=== PATIENT | male | born 1960 | race Caucasian/White ===

== ENCOUNTER 2021-04-05 17:13 | Emergency (ER) | payer OTHER ==
[~2021-04-05] VITALS: Ht 182.9 cm; Wt 90.9 kg
--- NOTE | 2021-04-05 17:22 | PHYS DOC ---
General Adult HPI: HPI: 60-year-old male past medical history of meth use, presents the ED from [facility], [place], brought in by EMS with complaints of painful genital rash x2 days stating he checked himself into rehab 10 days ago (which was his last meth use-reports IVDU). States before this he had been walking around in wet clothing for days. Also reports drinking lots of water at bedtime and having to get up and use restroom multiple times at night. Denies associated urethral discharge, dysuria, hematuria, incontinence, saddle anesthesia, flank pain, nausea, vomiting or fever. NKDA. Review of Systems: Review of Systems: Constitutional: Denies fever or chills. [] Eyes: Denies change in visual acuity. [] HENT: Denies nasal congestion or sore throat. [] Respiratory: Denies cough or shortness of breath. [] Cardiovascular: Denies chest pain or edema. [] GI: Denies abdominal pain, nausea, vomiting, bloody stools or diarrhea. [] : Denies hematuria or saddle anesthesia Musculoskeletal: Denies back pain or joint pain. [] Integument: Denies diaphoresis or desquamation Neurologic: Denies headache, focal weakness or sensory changes. [] Endocrine: Denies polyuria or polydipsia. [] Lymphatic: Denies swollen glands. [] Psychiatric: Denies depression or anxiety. [] Heart Score: C/O Chest Pain: No Risk Factors: Risk Factors: DM, Current or recent (<one month) smoker, HTN, HLP, family history of CAD, obesity. Risk Scores: Score 0 - 3: 2.5% MACE over next 6 weeks - Discharge Home Score 4 - 6: 20.3% MACE over next 6 weeks - Admit for Clinical Observation Score 7 - 10: 72.7% MACE over next 6 weeks - Early Invasive Strategies Physical Exam: PE: Constitutional: Unkept/disheveled appearance, no acute distress, non-toxic appearance, hypertensive HENT: Normocephalic, atraumatic, Eyes: EOMI, conjunctiva normal, no discharge. Neck: Normal range of motion, supple, Cardiovascular: S1/2 present, regular rhythm Lungs & Thorax: Speaking in full sentences, bilateral equal chest rise, no tachypnea or increased work of breathing Skin: Warm, dry, Extremities: No tenderness, no cyanosis, no lower extremity edema, tremulous at rest Neurologic: Alert and oriented X 3, no focal deficits noted. [] Psychologic: Affect normal, calm mood : Chaperoned by RN, circumcised, no scrotal edema/crepitus/erythema, no pharyngeal erythema, moist/malodorous satellite lesions in both inguinal folds, no testicular penile pain/fusion/trauma EKG: EKG: [] Radiology/Procedures: Radiology/Procedures: [] Course & Med Decision Making: Course & Med Decision Making Pertinent Labs and Imaging studies reviewed. (See chart for details) Concern for uncontrolled, asymptomatic hypertension in the setting of candidial infection of both inguinal folds.physical exam with no erythema of the genitals or perineum, no signs consistent with necrotizing fasciitis. Patient afebrile. Will prescribe nystatin and was given verbal instructions on wound care. Will discharge home with strict ED return precautions were given for chest pain, dyspnea, neurologic deficits, confusion or worsening rash. Encouraged urgent out patient follow-up with PMD for blood pressure recheck. Life-threatening processes were considered but are low suspicion at this time, given history, physical exam and ED workup. Pt was educated on all prescription medications and adverse effects. All patient's questions were answered and pt was stable at time of discharge. Life/limb-threatening differential includes but is not limited to, erythema multiforme, canales-adan syndrome, toxic epidermal necrolysis, staphylococcal scalded skin syndrome, necrotizing fasciitis/myositis/cellulitis, purpura fulminans, heparin or warfarin induced skin necrosis, angioedema, anaphylaxis drug rash, disseminated intravascular coagulation, disseminated gonococcal disease, vasculitis, septicemia, petechial disorder or coagulopathy, viral exanthem, Kawasaki's disease or life-threatening burn requiring burn center management or escharotomy. I have spoken with the patient and/or caregivers. I explained the patient's condition, diagnoses and treatment plan based on the information available to me at this time. I have answered the patient and/or caregiver's questions and addressed any concerns. The patient and/or caregivers have a good understanding of patient's diagnosis, condition and treatment plan as can be expected at this point. Vital signs have been stable. Patient's condition is stable and appropriate for discharge from the emergency department. Patient will pursue further outpatient evaluation with primary care physician or other designated or consulting physician as outlined in the discharge instructions. The patient and/or caregivers are agreeable to this plan of care and follow-up instructions have been explained in detail. The patient and/or caregivers have received these instructions in written form and have expressed an understanding of the discharge instructions. The patient and/or caregivers are aware that any significant change of condition or worsening of symptoms should prompt immediate return to this or the closest emergency department or call to 911. Yumiko Disclaimer: Yumiko Disclaimer: This electronic medical record was generated, in whole or in part, using a voice recognition dictation system. Departure Departure Impression: Primary Impression: Kimberlee infection of flexural skin Disposition: HOME / SELF CARE / HOMELESS Condition: STABLE Referrals: SERGIO SUNSHINE MD Follow-up with your primary care physician in 3-5 days for blood pressure check OR FOLLOW UP WITH FAMILY MEDICINE: [address], [address] [place] [address] Patient Instructions: Yeast Infection of the Skin, [id number] Additional Instructions: EMERGENCY DEPARTMENT GENERAL DISCHARGE INSTRUCTIONS Thank you for coming to [facility] Emergency Department (ED) today and trusting us with you care. We trust that you had a positive experience in our Emergency Department. If you wish to speak to the department management, you may call the Director at [phone]. YOUR FOLLOW UP INSTRUCTIONS ARE FOLLOWS: 1. Do you have a private Doctor? If you do not have a private doctor, please ask for a resource list of physicians or clinics that may be able to assist you with follow up care. 2. The Emergency Physicain has interpreted your x-rays. The X-Ray specialist will also review them. If there is a change in the findings, you will be notified in 48 hours when at all possible. 3. A lab test or culture has been done, your results will be reviewed and you will be notified if you need a change in treatment. ADDITIONAL INSTRUCTIONS AND INFORMATION: 1. Your care today has been supervised by a physician who is specially trained in emergency care. Many problems require more than one evaluation for a complete diagnosis and treatment. We recommend that you schedule your follow up appointment as recommended to ensure complete treatment of you illness or injury. If you are unable to obtain follow up care and continue to have a problem, or if your condition worsens, we recommend that you return to the ED. 2. We are not able to safely determine your condition over the phone nor are we able to give sound medical advice over the phone. For these safety reasons, if you call for medical advice we will ask you to come to the ED for further evaluation. 3. If you have any questions regarding these discharge instructions please call the ED at [phone]. SAFETY INFORMATION: In the interest of safety, wellness, and injury prevention; we encourage you to wear your sealbelt, if you smoke; quite smoking, and we encourage family to use a protective helmet for bicycling and other sporting events that present an increased risk for head injury. IF YOUR SYMPTOMS WORSEN OR NEW SYMPTOMS DEVELOP, OR YOU HAVE CONCERNS ABOUT YOUR CONDITION; OR IF YOUR CONDITION WORSENS WHILE YOU ARE WAITING FOR YOUR FOLLOW UP APPOINTMENT; EITHER CONTACT YOUR PRIMARY CARE DOCTOR, THE PHYSICIAN WHOSE NAME AND NUMBER YOU WERE GIVEN, OR RETURN TO THE ED IMMEDIATELY. Scripts Nystatin (NYSTATIN) 15 Gm Oint...g. 1 ARIANNA TP QID for 7 Days, #30 GM 7-10 days or until rash has resolved Prov: JACOB WOODS DO 04/05/21 AJCOB WOODS DO Apr 05, 2021 17:22
[2021-04-05] MEDS ORDERED: NYST15OI TP (17:59)
[2021-04-05 18:15] VITALS: BP 159/90
== END 2021-04-05 18:21 | disposition home or self-care (01) ==
LOC: ER 17:13
DX: B37.2 Candidiasis of skin and nail (principal)
CPT/HCPCS: 82962; 99283; 99285-25

== ENCOUNTER 2021-06-15 14:39 | Emergency (ER) | payer SELFPAY ==
[~2021-06-15] VITALS: Ht 180.3 cm; Wt 99.0 kg
[~2021-06-15 14:39] MED LIST: NYST15OI TP
--- NOTE | 2021-06-15 15:47 | ED.ADGEN ---
Past Medical History Additional Past Medical Histor: drug abuse Past Surgical History: Other Additional Past Surgical Histo: right arm fracture repair Smoking Status: Never Smoker Alcohol Use: None General Adult EDM: Chief Complaint: HYPERTENSION HPI: HPI: Patient is a 61-year-old male who arrives ambulatory to the emergency department seeking evaluation for visual changes. Patient reports for the past 3 days he has had blurred vision. Patient states he has a history of hypertension however he states he is homeless and has not been taking medication any kind for quite some time. Patient states previously when his blood pressure was elevated he would experience the same symptoms. Despite his visual changes, there are no other symptoms to report. Specifically the patient denies any neurological deficit, shortness of air or chest pain otherwise. He further denies any recent illness. He is awake, alert and nontoxic-appearing Review of Systems: Review of Systems: Constitutional: Denies fever or chills. [] Eyes: Reports blurred vision. Denies change in visual acuity. [] HENT: Reports visual change. Denies nasal congestion or sore throat. [] Respiratory: Denies cough or shortness of breath. [] Cardiovascular: Denies chest pain or edema. [] GI: Denies abdominal pain, nausea, vomiting, bloody stools or diarrhea. [] : Denies dysuria. [] Musculoskeletal: Denies back pain or joint pain. [] Integument: Denies rash. [] Neurologic: Reports blurred vision. Denies headache, focal weakness or sensory changes. [] Endocrine: Denies polyuria or polydipsia. [] Lymphatic: Denies swollen glands. [] Psychiatric: Denies depression or anxiety. [] Allergies: Allergies: Allergies Coded Allergies Type Severity Reaction Last Updated Verified No Known Drug Allergies 04/05/21 No Physical Exam: PE: Constitutional: Unkempt in his appearance. Well developed, well nourished, no acute distress, non-toxic appearance. [] HENT: Normocephalic, atraumatic, bilateral external ears normal, oropharynx moist, no oral exudates, nose normal. [] Eyes: PERRLA, EOMI, conjunctiva normal, no discharge. [] Neck: Normal range of motion, no tenderness, supple, no stridor. [] Cardiovascular:Heart rate regular rhythm, no murmur [] Lungs & Thorax: Bilateral breath sounds clear to auscultation [] Abdomen: Bowel sounds normal, soft, no tenderness, no masses, no pulsatile masses. [] Skin: Warm, dry, no erythema, no rash. [] Back: No tenderness, no CVA tenderness. [] Extremities: No tenderness, no cyanosis, no clubbing, ROM intact, no edema. [] Neurologic: Alert and oriented X 3, normal motor function, normal sensory function, no focal deficits noted. [] Psychologic: Affect normal, judgement normal, mood normal. [] Current Patient Data: Labs: Laboratory Tests Test 06/15/21 16:36 White Blood Count 6.0 x10^3/uL (4.0-11.0) Red Blood Count 5.06 x10^6/uL (4.30-5.70) Hemoglobin 16.7 g/dL (13.0-17.5) Hematocrit 47.8 % (39.0-53.0) Mean Corpuscular Volume 95 fL (79-100) Mean Corpuscular Hemoglobin 33 pg (25-35) Mean Corpuscular Hemoglobin Concent 35 g/dL (31-37) Red Cell Distribution Width 13.3 % (11.5-14.5) Platelet Count 179 x10^3/uL (140-400) Neutrophils (%) (Auto) 42 % (31-73) Lymphocytes (%) (Auto) 40 % (24-48) Monocytes (%) (Auto) 8 % (0-9) Eosinophils (%) (Auto) 9 % (0-3) H Basophils (%) (Auto) 1 % (0-3) Neutrophils # (Auto) 2.5 x10^3/uL (1.8-7.7) Lymphocytes # (Auto) 2.4 x10^3/uL (1.0-4.8) Monocytes # (Auto) 0.5 x10^3/uL (0.0-1.1) Eosinophils # (Auto) 0.5 x10^3/uL (0.0-0.7) Basophils # (Auto) 0.1 x10^3/uL (0.0-0.2) Sodium Level 142 mmol/L (136-145) Potassium Level 4.2 mmol/L (3.5-5.1) Chloride Level 107 mmol/L (98-107) Carbon Dioxide Level 27 mmol/L (21-32) Anion Gap 8 (6-14) Blood Urea Nitrogen 15 mg/dL (8-26) Creatinine 0.8 mg/dL (0.7-1.3) Estimated GFR (Cockcroft-Gault) 98.9 Glucose Level 91 mg/dL (70-99) Calcium Level 8.6 mg/dL (8.5-10.1) Troponin I High Sensitivity 9 ng/L (4-75) XC-Urf-V-Type Natriuretic Peptide 61 pg/mL (0-124) Laboratory Tests 06/15/21 16:36 Laboratory Tests 06/15/21 16:36 Vital Signs: Vital Signs Date Time Temp Pulse Resp B/P (MAP) Pulse Ox O2 Delivery O2 Flow Rate FiO2 06/15/21 17:00 62 163/103 (123) 97 Room Air 06/15/21 15:42 97.9 16 97.9 EKG: EKG: EKG was obtained at 1548 hrs. reveals bradycardia the ventricular rate of 59 bpm. There is left axis deviation with an incomplete right bundle branch block. There are no acute ST/T wave changes present to denote ischemia otherwise. [] Heart Score: C/O Chest Pain: No Risk Factors: Risk Factors: DM, Current or recent (<one month) smoker, HTN, HLP, family history of CAD, obesity. Risk Scores: Score 0 - 3: 2.5% MACE over next 6 weeks - Discharge Home Score 4 - 6: 20.3% MACE over next 6 weeks - Admit for Clinical Observation Score 7 - 10: 72.7% MACE over next 6 weeks - Early Invasive Strategies Radiology/Procedures: Radiology/Procedures: [][facility] [address] [place] [address] IMAGING REPORT Signed PATIENT: TAB KNOTT ACCOUNT: [id number] : 1960 LOCATION: ER AGE: 61 SEX: M EXAM STATUS: REG ER ORD. PHYSICIAN: JOHNATHAN ROY DO REASON: visual changes PROCEDURE: CT HEAD WO CONTRAST Exam Date: 06/15/2021 3:[address] HEAD/BRAIN WO Indication: Reason: visual changes / Spl. Instructions: / History: . TECHNIQUE: Head CT was performed without intravenous contrast. One or more of the following dose reduction techniques were utilized: *Automated exposure control (AEC) *Adjustment of mA and/or kV according to patient size *Use of iterative reconstruction technique *CT scan done according to ALARA, or ALARA/IMAGE GENTLY FINDINGS: The ventricles and sulci are normal for the patient's stated age. Patchy ill- defined low attenuation areas in the subcortical and periventricular white matter bilaterally are consistent with microvascular disease. There is no evidence of acute intracranial hemorrhage, extra-axial collection, mass effect, midline shift, or acute territorial infarct. No lesion of the skull base or the calvarium is seen. The visualized mastoid air cells and orbits are normal in appearance. There is partial opacification of the paranasal sinuses. IMPRESSION: No evidence for acute intracranial abnormality. Microvascular disease noted. Electronically signed by: Kranthi Washington MD (06/15/2021 4:10 PM) NIKOLASMELCHOR DICTATED and SIGNED BY: KRANTHI WASHINGTON MD DATE: 06/15/21 [id number] [facility] [address] [place] [address] IMAGING REPORT Signed PATIENT: TAB KNOTT ACCOUNT: [id number] : 1960 LOCATION: ER AGE: 61 SEX: M EXAM STATUS: REG ER ORD. PHYSICIAN: JOHNATHAN ROY DO REASON: elevated bp PROCEDURE: PORTABLE CHEST 1V Exam Date: 06/15/2021 3:51 PM XR CHEST 1V Indication: Reason: elevated bp / Spl. Instructions: / History: . FINDINGS/ IMPRESSION: The cardiac silhouette is enlarged without congestion. There is no focal consolidation, pleural effusion or pneumothorax. The visualized osseous structures are intact. Electronically signed by: Kranthi Washington MD (06/15/2021 4:12 PM) NIKOLASRODRIGUEZ DICTATED and SIGNED BY: KRANTHI WASHINGTON MD DATE: 06/15/21 [id number] 0 Course & Med Decision Making: Course & Med Decision Making Pertinent Labs and Imaging studies reviewed. (See chart for details) The patient remains awake, alert and in no acute distress. I spoke with the patient in great detail about the need to control his blood pressure regularly and have regular follow-up with the family physician. Patient states he is in the process of locating a residence and states he will try and find a family physician with whom to establish a relationship. He has been provided resources for follow-up that is sensitive to his financial situation. Should he develop any chest pain, shortness of air or medical concern otherwise, I advised that he return to the emergency department. The patient understands and has agreed to return as needed. At this time he is asymptomatic and neurologically intact. He is stable for discharge. [] Gomezon Disclaimer: Yumiko Disclaimer: This electronic medical record was generated, in whole or in part, using a voice recognition dictation system. Departure Departure Impression: Primary Impression: Uncontrolled hypertension Disposition: 01 HOME / SELF CARE / HOMELESS Condition: STABLE Referrals: NO PCP (PCP) Patient Instructions: Hypertension Scripts Amlodipine Besylate (NORVASC) 5 Mg Tablet 1 TAB PO DAILY, #30 TAB 5 Refills Prov: JOHNATHAN ROY DO 06/15/21 JOHNATHAN ROY DO Jun 15, 2021 15:47
--- NOTE | 2021-06-15 16:12 | RAD ---
Exam Date: 06/15/2021 3:[address] HEAD/BRAIN WO Indication: Reason: visual changes / Spl. Instructions: / History: . TECHNIQUE: Head CT was performed without intravenous contrast. One or more of the following dose re duction techniques were utilized: *Automated exposure control (AEC) *Adjustment of mA and/or kV according to patient size *Use of iterative reconstruction technique *CT scan done according to ALARA, or ALARA/IMAGE GENTLY FINDINGS: The ventricles and sulci are normal for the patient's stated age. Patchy ill-defined low attenuation areas in the subcortical and periventricular white matter bilaterally are consistent with microvascu lar disease. There is no evidence of acute intracranial hemorrhage, extra-axial collection, mass ef fect, midline shift, or acute territorial infarct. No lesion of the skull base or the calvarium is se en. The visualized mastoid air cells and orbits are normal in appearance. There is partial opacifica tion of the paranasal sinuses. IMPRESSION: No evidence for acute intracranial abnormality. Microvascular disease noted. Electronically signed by: Adiel Washington MD (06/15/2021 4:10 PM) [facility]
--- NOTE | 2021-06-15 16:14 | RAD ---
Exam Date: 06/15/2021 3:51 PM XR CHEST 1V Indication: Reason: elevated bp / Spl. Instructions: / History: . FINDINGS/ IMPRESSION: The cardiac silhouette is enlarged without congestion. There is no focal consolidation, pleural effusion or pneumothorax. The visualized osseous structures are intact. Electronically signed by: Adiel Washington MD (06/15/2021 4:12 PM) [facility]
--- NOTE | 2021-06-15 16:31 | EKG ---
[facility] [address] [place] [address] Test Date: 2021-06-15 Test Time: 15:48:09 Pat Name: TAB KNOTT Department: Room: Gender: M [employer]: : 1960 Requested By: JOHNATHAN ROY Order Number: [id number] Reading MD: Reno Bhatt Measurements Intervals [place] Rate: 59 P: -28 DE: 172 QRS: -28 QRSD: 104 T: 5 QT: 454 QTc: 454 Interpretive Statements SINUS RHYTHM LEFTWARD AXIS INCOMPLETE RIGHT BUNDLE BRANCH BLOCK Electronically Signed On 06-16-2021 15:34:44 [employer] WORK[employer] by Reno Bhatt
[2021-06-15 16:55] LABS: BASO # 0.1 x10^3/uL (0.0-0.2); BASO % 1 % (0-3); EOS # 0.5 x10^3/uL (0.0-0.7); EOS % 9 % (0-3); HEMATOCRIT 47.8 % (39.0-53.0); HEMOGLOBIN 16.7 g/dL (13.0-17.5); LYMPH # 2.4 x10^3/uL (1.0-4.8); LYMPH % 40 % (24-48); MEAN CORPUSCULAR HEMOGLOBIN 33 pg (25-35); MEAN CORPUSCULAR HGB CONC 35 g/dL (31-37); MEAN CORPUSCULAR VOLUME 95 fL (79-100); MONO # 0.5 x10^3/uL (0.0-1.1); MONO % 8 % (0-9); NEUT # 2.5 x10^3/uL (1.8-7.7); NEUT % 42 % (31-73); PLATELET COUNT 179 x10^3/uL (140-400); RED BLOOD COUNT 5.06 x10^6/uL (4.30-5.70); RED CELL DISTRIBUTION WIDTH 13.3 % (11.5-14.5)
[2021-06-15 17:00] VITALS: BP 163/103
[2021-06-15 17:14] LABS: CALCIUM 8.6 mg/dL (8.5-10.1); CREATININE 0.8 mg/dL (0.7-1.3); GFR 98.9; POTASSIUM 4.2 mmol/L (3.5-5.1)
[2021-06-15] MEDS ORDERED: AMLO5TAB4 PO (17:30)
== END 2021-06-15 17:41 | disposition home or self-care (01) ==
LOC: ER 14:39
DX: I10 Essential (primary) hypertension (principal); Z59.00 Homelessness unspecified; I45.10 Unspecified right bundle-branch block
CPT/HCPCS: 36415; 70450; 71045; 80048; 83880; 84484; 85025; 93005; 99285-25

== ENCOUNTER 2021-10-21 17:17 | Emergency (ER) | payer MEDICAID ==
[~2021-10-21] VITALS: Ht 180.3 cm; Wt 102.3 kg
[~2021-10-21 17:17] MED LIST changes: +AMLO5TAB4 PO
[2021-10-21] MEDS: KETOROLAC 30 MG/ML VIAL. IM ONE (18:16)
[2021-10-21] MEDS: ORPHENADRINE CITRATE 60 MG/2 ML VIAL. IM ONE (18:19)
[2021-10-21] MEDS: LIDOCAINE (700MG/PATCH) PATCH. TD ONE (18:22)
[2021-10-21] MEDS ORDERED: ORPH100T PO (19:00)
--- NOTE | 2021-10-21 19:02 | PHYS DOC ---
Past Medical History Past Medical History: Heart Disease, Sciatica Additional Past Medical Histor: drug abuse, ENLARGED HEART Past Surgical History: Other Additional Past Surgical Histo: right arm fracture repair Smoking Status: Former Smoker Alcohol Use: Sober Social History Narrative: prior substance use issues General Adult EDM: Chief Complaint: HIP PAIN HPI: HPI: Patient is a 61 year old male with past medical history of left-sided sciatica who presents with sided low back and hip pain. Patient states that he has been attempting to get placed on disability for some time, but needed to go back to work as part of the requirements. After doing so, he states that his sciatica is "flaring up." Patient does have a primary doctor handling his disability documentation, but presents today for increased pain. Patient has no other complaints at this time. Review of Systems: Review of Systems: ROS reviewed and negative or noncontributory except as mentioned in HPI. Heart Score: C/O Chest Pain: No Current Medications: Current Medications Medications (Trade) Dose Ordered Sig/Ludmila Start Time Stop Time Status Last Admin Dose Admin Ketorolac Tromethamine (Toradol 30mg Vial) 30 mg 1X ONCE 10/21/21 17:45 10/21/21 17:46 DC 10/21/21 18:16 30 MG Lidocaine (Lidoderm) 1 patch 1X ONCE 10/21/21 17:45 10/21/21 17:46 DC 10/21/21 18:22 1 PATCH Orphenadrine Citrate (Norflex) 60 mg 1X ONCE 10/21/21 17:45 10/21/21 17:46 DC 10/21/21 18:19 60 MG Allergies: Allergies: Allergies Coded Allergies Type Severity Reaction Last Updated Verified No Known Drug Allergies 04/05/21 No Physical Exam: PE: Constitutional: Well developed, well nourished, no acute distress, non-toxic appearance. HENT: Normocephalic, atraumatic, bilateral external ears normal, nose normal. Eyes: EOMI, conjunctiva normal, no discharge. Neck: Normal range of motion, no stridor. Back: No step-off, no midline tenderness, negative straight leg raise test Extremities: No cyanosis, no clubbing, ROM intact, no edema. Neurologic: Alert and oriented x4, normal motor function, normal sensory function, no focal deficits noted. Current Patient Data: Vital Signs: Vital Signs Date Time Temp Pulse Resp B/P (MAP) Pulse Ox O2 Delivery O2 Flow Rate FiO2 10/21/21 19:10 168/110 (129) 10/21/21 17:30 98.1 69 20 165/108 (127) 95 Room Air 98.1 Date Time Temp Pulse Resp B/P (MAP) Pulse Ox O2 Delivery O2 Flow Rate FiO2 10/21/21 17:30 98.1 69 20 165/108 (127) 95 Room Air 98.1 Course & Med Decision Making: Course & Med Decision Making Pertinent Labs and Imaging studies reviewed. (See chart for details) VIOlife Disclaimer: VIOlife Disclaimer: This electronic medical record was generated, in whole or in part, using a voice recognition dictation system. Departure Departure Impression: Primary Impression: Chronic left-sided low back pain with left-sided sciatica Disposition: HOME / SELF CARE / HOMELESS Condition: IMPROVED Referrals: NO PCP (PCP) Patient Instructions: Sciatica, [id number] Additional Instructions: EMERGENCY DEPARTMENT GENERAL DISCHARGE INSTRUCTIONS Thank you for coming to [facility] Emergency Department (ED) today and trusting us with you care. We trust that you had a positive experience in our Emergency Department. If you wish to speak to the department management, you may call the director at . YOUR FOLLOW UP INSTRUCTIONS ARE FOLLOWS: 1. Follow up with your primary care doctor. If you do not have a primary doctor, please ask for a resource list of physicians or clinics that may be able to assist you with follow up care. 2. The emergency provider has interpreted your imaging studies, if any were ord ered. The radiology adoption specialist also reviewed them. If there is a change in the findings, you will be notified in 48 hours when at all possible. 3. If a lab test or culture has been done, your results will be reviewed and you will be notified if you need a change in treatment. 4. Follow instructions verbalized to you and refer to the printouts if needed. ADDITIONAL INSTRUCTIONS AND INFORMATION: 1. Your care today has been supervised by a physician who is specially trained in emergency care. Many problems require more than one evaluation for a complete diagnosis and treatment. We recommend that you schedule your follow up appointment as recommended to ensure complete treatment of you illness or injury. If you are unable to obtain follow up care and continue to have a problem, or if your condition worsens, we recommend that you return to the ED. 2. We are not able to safely determine your condition over the phone nor are we able to give sound medical advice over the phone. For these safety reasons, if you call for medical advice we will ask you to come to the ED for further evaluation. 3. If you have any questions regarding these discharge instructions please call the ED at . SAFETY INFORMATION: In the interest of safety, wellness, and injury prevention; we encourage you to wear your seat belt, if you smoke; quite smoking, and we encourage family to use a protective helmet for bicycling and other sporting events that present an increased risk for head injury. IF YOUR SYMPTOMS WORSEN OR NEW SYMPTOMS DEVELOP, OR YOU HAVE CONCERNS ABOUT YOUR CONDITION; OR IF YOUR CONDITION WORSENS WHILE YOU ARE WAITING FOR YOUR FOLLOW UP APPOINTMENT; EITHER CONTACT YOUR PRIMARY CARE DOCTOR, THE PHYSICIAN WHOSE NAME AND NUMBER YOU WERE GIVEN, OR RETURN TO THE ED IMMEDIATELY. Scripts Hydrocodone Bit/Acetaminophen (HYDROCODONE-APAP 5-325 ) 1 Tab Tablet 1 TAB PO PRN Q6HRS PRN for PAIN, #12 TAB 0 Refills Prov: TRISHA HERNANDEZ 10/21/21 Orphenadrine Citrate (ORPHENADRINE CITRATE) 100 Mg Tablet.er 1 TAB PO BID, #20 TAB 0 Refills Prov: TRISHA HERNANDEZ 10/21/21 TRISHA HERNANDEZ Oct 21, 2021 19:02
[2021-10-21 19:10] VITALS: BP 168/110
[2021-10-21] MEDS ORDERED: HYDR-2761 PO (19:33)
== END 2021-10-21 19:29 | disposition home or self-care (01) ==
LOC: ER 17:17
DX: M54.42 Lumbago with sciatica, left side (principal); M25.552 Pain in left hip; G89.29 Other chronic pain; Z87.891 Personal history of nicotine dependence; Z86.79 Personal history of other diseases of the circulatory system
CPT/HCPCS: 96372; 99284; J1885; J2360

== ENCOUNTER 2021-11-25 09:05 | Emergency (ER) | payer MEDICAID, OTHER ==
[~2021-11-25] VITALS: Ht 182.9 cm; Wt 100.0 kg
[~2021-11-25 09:05] MED LIST changes: +HYDR-2761 PO; +ORPH100T PO
[2021-11-25 09:12] VITALS: BP 152/97
[2021-11-25] MEDS ORDERED: predniSONE 20 MG TABLET PO ONE (09:30)
[2021-11-25] MEDS ORDERED: HYDROcodone/APAP 5/325MG 1 TAB TABLET PO ONE (09:30)
[2021-11-25] MEDS ORDERED: PRED20TA PO (09:39)
[2021-11-25] MEDS ORDERED: HYDR-2761 PO (09:39)
--- NOTE | 2021-11-25 09:41 | PHYS DOC ---
Past Medical History Past Medical History: Heart Disease, Sciatica Additional Past Medical Histor: bulging discs Past Surgical History: No Surgical History Additional Past Surgical Histo: right arm fracture repair Smoking Status: Former Smoker Alcohol Use: Sober General Adult EDM: Chief Complaint: LOWER BACK PAIN OR INJURY HPI: HPI: Patient is a 61-year-old male presents to the emergency department complaining of sciatica flareup. 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 Sequeira for chronic low back pains, has an MRI scheduled soon, reports he is trying to get on disability. Patient reports over the past 3 days he had an increase in his left-sided low back pain. Patient denies relief with prescribed gabapentin, Tylenol and ibuprofen. Patient reports he last took pain medications last night with little relief in pain, currently reports a 10 pain. Patient denies history of IV drug use, immunosuppression, cancers, fevers/chills, denies numbness or tingling to his genitals or buttocks, denies bowel/bladder i ncontinence/retention or recent traumatic injury to his back. Patient denies other physical complaints or physical concerns. Review of Systems: Review of Systems: 14 body systems of review of systems have been reviewed. See HPI for pertinent positives and negative responses, otherwise all other systems are negative, nonpertinent or noncontributory. Constitutional: Negative except as outlined in HPI above. Skin: Negative except as outlined in HPI above. Eyes: Negative except as outlined in HPI above. HENT: Negative except as outlined in HPI above. Respiratory: Negative except as outlined in HPI above. Cardiovascular: Negative except as outlined in HPI above. GI: Negative except as outlined in HPI above. : Negative except as outlined in HPI above. Musculoskeletal: Negative except as outlined in HPI above. Integument: Negative except as outlined in HPI above. Neurologic: Negative except as outlined in HPI above. Endocrine: Negative except as outlined in HPI above. Lymphatic: Negative except as outlined in HPI above. Psychiatric: Negative except as outlined in HPI above. Heart Score: C/O Chest Pain: No Risk Factors: Risk Factors: DM, Current or recent (<one month) smoker, HTN, HLP, family history of CAD, obesity. Risk Scores: Score 0 - 3: 2.5% MACE over next 6 weeks - Discharge Home Score 4 - 6: 20.3% MACE over next 6 weeks - Admit for Clinical Observation Score 7 - 10: 72.7% MACE over next 6 weeks - Early Invasive Strategies Current Medications: Current Medications Medications (Trade) Dose Ordered Sig/Ludmila Start Time Stop Time Status Last Admin Dose Admin Acetaminophen/ Hydrocodone Bitart (Lortab 5/325) 1 tab 1X ONCE 11/25/21 09:30 11/25/21 09:31 UNV Prednisone (Prednisone) 60 mg 1X ONCE 11/25/21 09:30 11/25/21 09:31 UNV Allergies: Allergies: Allergies Coded Allergies Type Severity Reaction Last Updated Verified No Known Drug Allergies 04/05/21 No Physical Exam: PE: Constitutional: Well developed, well nourished, no acute distress, non-toxic ap pearance. 61-year-old male in no apparent distress. HENT: Normocephalic, atraumatic. Eyes: Conjunctiva normal, no discharge. Neck: Normal range of motion, no stridor. Cardiovascular: No cyanosis appreciated, distal cap refill less than 2 seconds. Lungs & Thorax: Patient is in no respiratory distress, no audible adventitious lung sounds appreciated. Abdomen: Nontender, no abnormalities noted. Skin: Warm, dry, no erythema, no rash. Back: No deformities present, no midline spinal pain, there is pain to the left lumbar area with palpation without radiation of pain. Extremities: No tenderness, no cyanosis, no clubbing, ROM intact, no edema. 5/5motor strength with hip flexion, knee flexion,extension, knee adduction, plantar/dorsiflexion at the ankle, and dorsiflexion of the toe bilaterally. Neurologic: Alert and oriented X 3, normal motor function, normal sensory function, no focal deficits noted. Psychologic: Affect normal, judgement normal, mood normal. Current Patient Data: Vital Signs: Vital Signs Date Time Temp Pulse Resp B/P (MAP) Pulse Ox O2 Delivery O2 Flow Rate FiO2 11/25/21 09:12 97.0 62 18 152/97 (115) 98 Room Air 97.0 EKG: EKG: [] Radiology/Procedures: Radiology/Procedures: [] Course & Med Decision Making: Course & Med Decision Making Pertinent Labs and Imaging studies reviewed. (See chart for details) 61-year-old male, vital signs reviewed, presents emergency department concerning sciatica flareup. Physical examination is consistent with patient complaints, there is no saddle anesthesia, no recent trauma that would warrant emergent imaging, discussed with patient will give pain medication, started on steroid regimen, continue all home medications as prescribed by his primary care physician, return to ER precautions and concerns for discussed, discussed with patient keep in all future appointments and scheduled MRI in the future, patient gave verbal understanding of and is amenable to ED discharge planning. Patient is asking for work excuse, will provide work excuse. Discussed with the patient all findings and diagnostic testing as well as the need to follow-up with their primary care provider for further evaluation and treatment or return to the ED if any new or worsening symptoms. Strict return precautions were also discussed at length, the patient voiced understanding and agreement with the discharge planning. The patient was nontoxic in appearance, in no apparent distress, and hemodynamically stable at the time of disposition. Dragon Disclaimer: Credit Benchmark Disclaimer: This electronic medical record was generated, in whole or in part, using a voice recognition dictation system. Departure Departure Impression: Primary Impression: Lumbago Qualified Codes: M54.50 - Low back pain, unspecified Disposition: 01 HOME / SELF CARE / HOMELESS Condition: GOOD Referrals: HAMIDA SEQUEIRA MD (PCP) Patient Instructions: Sciatica Additional Instructions: You were seen today in the emergency department for low back pain. As we discussed I am starting you on a pain medication to help get on top of pain, also a steroid, please take as directed until complete, please continue all home medications as prescribed by your primary care physician, please keep all future appointments related to your back pain and your MRI that Dr. Sequeira is scheduling for you. Please do not drive or operate heavy machinery or perform dangerous activities while taking narcotic pain medications. Thank you for visiting our Emergency Department. It was a pleasure taking care of you today in the emergency department and we appreciate you trusting us with your care. If any additional problems come up don't hesitate to return to visit us. Please follow up with your primary care provider so they can plan additional care if needed and know about the problem that you had. If symptoms worsen come back to the Emergency Department. Any concerning symptoms that start such as chest pain, shortness of air, weakness or numbness on one side of the body, running high fevers or any other concerning symptoms return to the ER. Scripts Hydrocodone Bit/Acetaminophen (HYDROCODONE-APAP 5-325 ) 1 Tab Tablet 1 TAB PO PRN Q6HRS PRN for PAIN, #12 TAB 0 Refills Prov: SERGIO CLEARY APRN 11/25/21 Prednisone (PREDNISONE) 20 Mg Tablet 2 TAB PO DAILY for Back pain for 10 Days, #20 TAB Prov: SERGIO CLEARY APRN 11/25/21 SERGIO CLEARY APRN November 25, 2021 09:40
== END 2021-11-25 09:57 | disposition home or self-care (01) ==
LOC: ER 09:05
DX: M54.50 Low back pain, unspecified (principal); Z87.891 Personal history of nicotine dependence; Z86.79 Personal history of other diseases of the circulatory system
CPT/HCPCS: 99283; J7512